=== PATIENT | female | born 2005 | race Caucasian/White ===

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

== ENCOUNTER 2025-01-06 20:55 | Emergency (ER) | payer OTHER ==
[~2025-01-06] VITALS: Wt 78.5 kg
[~2025-01-06 20:55] MED LIST changes: +MEDROL DOSEPAK4 MG PO
[2025-01-06 21:34] LABS: BILIRUBIN Negative (Negative); BLOOD Negative (Negative); CLARITY Clear (Clear); COLOR Yellow (Yellow); KETONE Negative (Negative); LEUKO ESTERASE Negative (Negative); NITRITE Negative (Negative); PH 6.5 (4.5-8.0); SPECIFIC GRAVITY <= 1.005 (1.001-1.030); UROBILINOGEN 0.2 E.U./dl (0.0-1.0)
[2025-01-06 21:50] LABS: BACTERIA 1+
== END 2025-01-06 21:45 | disposition home or self-care (01) ==
LOC: ED 20:55
PROVIDERS: Nurse Practitioner Family
DX: N73.9 Female pelvic inflammatory disease, unspecified (principal); Z79.899 Other long term (current) drug therapy